=== PATIENT | male | born 1960 | race Caucasian/White ===

== ENCOUNTER 2020-06-05 13:31 | Outpatient (RCR) | payer BC, SELFPAY ==
[2020-06-05] MEDS: COVID-19 VACC, MRNA(PFIZER)/PF 30 MCG/0.3 ML SYRINGE IM (11:39)
[2020-06-26] MEDS: COVID-19 VACC, MRNA(PFIZER)/PF 30 MCG/0.3 ML SYRINGE IM (11:43)
== END 2020-06-05 23:59 ==
LOC: IMMUN 13:31
PROVIDERS: PCP Preventive Medicine Occupational Medicine; Visit Provider Family Medicine
DX: Z23 Encounter for immunization (principal)
CPT/HCPCS: 0001A; 0002A; 91300

== ENCOUNTER 2022-03-10 17:03 | Emergency (ER) | payer BC, SELFPAY ==
[2022-03-10 17:04] VITALS: BP 140/94; PULSE 78; RESP 15; TEMP 36.3; O2SAT 98; BMI 29.7
--- NOTE | 2022-03-10 17:08 | EKG12_ITS ---
Test Reason : CP Blood Pressure : / mmHG Vent. Rate : 074 BPM Atrial Rate : 074 BPM P-R Int : 252 ms QRS Dur : 098 ms QT Int : 380 ms P-R-T Axes : 051 037 057 degrees QTc Int : 421 ms Sinus rhythm with 1st degree A-V block Otherwise normal ECG Confirmed by DAO CAMARGO, CRISTIAN ([id number]), mapping editor DELPHINE MORILLO ([id number]) on 03/11/2022 10:42:06 AM Referred By: Confirmed By:CRISTIAN DC MD
--- NOTE | 2022-03-10 17:10 | NURSING ---
NO OLD EKGS
--- NOTE | 2022-03-10 17:15 | NURSING ---
NO OLD EKGS
[2022-03-10 17:18] VITALS: O2SAT 98
--- NOTE | 2022-03-10 17:19 | RAD_ITS ---
STUDY: X-RAY CHEST REASON FOR EXAM: Male, 61 years old. chest pain TECHNIQUE: Single AP portable view of the chest. COMPARISON: None. FINDINGS: The lungs are clear and expanded. There is no demonstrated pleural abnormality. Normal size heart. Normal mediastinum and britney. Normal visualized pulmonary arteries. Normal visualized aortic arch and descending thoracic aorta. Normal visualized thoracic spine. Normal visualized ribs, clavicles, and shoulders. There is no demonstrated abnormality of the visualized soft tissue structures of the upper abdomen. RAD/Chest 1 View (Portable) IMPRESSION: Normal x-ray examination of the chest. Electronically Signed: Fredy Patel MD at 17:34 EST ,
--- NOTE | 2022-03-10 17:21 | EDS_ITS ---
HPI History of Present Illness Chief Complaint: Chest Pain Informant: patient Onset/Context/Timing Onset: Today Activity at onset: sudden and onset Timing: Intermittent (x3) and Lasts (30 seconds) Quality: Positive for Pain Location: Substernal (inf-most sternum) Current Severity: Gone Maximum Severity: Moderate Worsened By: Nothing Relieved By: Nothing Associated Symptoms: Positive for Lightheadedness (mild, no near- syncope/syncope) and - (Radiating down both upper extremities, resolving along with the chest discomfort); Negative for Nausea, Vomiting, Diaphoresis, Dyspnea or Palpitations Narrative Narrative: Patient with 3 episodes of chest discomfort radiating down his arms and radiating straight into his mid back opposite the area of discomfort, the first episode occurred about 6 hours ago just before lunch, the next one was an hour after that after lunch, and the third 1 was another hour or so after that. He states he has had this happen before, it was several years ago he ended up having a stress test that was negative. No known cardiac history. He takes medication for blood pressure. Ex smoker. No pleuritic symptoms or other systemic symptoms. No recent illness. No recent travel out of the area. Prior Similar Symptoms: Yes CVD Risk Factors: Positive for Hypertension and Smoking (Former); Negative for Diabetes, Hypercholesterolemia or Family History 1' </=55 PE Risk Factors: Negative for Recent Travel/Surgery, Recent Immobilization, Prior DVT or PE, Cancer or OCP + Smoking + >/=35 PFSH PFSH Medical History (Updated 03/10/22 @ 17:[address] Brayden Dimas MD) Hypertension Allergy/AdvReac Type Severity Reaction Status Date / Time No Known Allergies Allergy Verified 03/10/22 17:04 Social History Smoking Status: Former smoker ROS ROS ED Constitutional Constitutional ED: Denies chills or fever(s) Eyes Eyes: Denies change in vision or diplopia ENT ENT ED: Denies rhinorrhea or sore throat Cardiovascular Cardiovascular: Reports chest pain; Denies palpitations Respiratory/Chest Respiratory/Chest: Denies cough or dyspnea Gastrointestinal Gastrointestinal: Denies abdominal pain, diarrhea, nausea or vomiting Genitourinary Genitourinary ED: Denies dysuria or hematuria Musculoskeletal Musculoskeletal: Reports back pain and extremity pain; Denies neck pain Integumentary Denies abscess or rash Neurologic Neurologic: Denies headache(s), paresthesias or weakness Psychiatric Psychiatric: Denies anxiety or suicidal thoughts EXAM Physical Exam Const Vital Signs: 03/10/22 17:04 03/10/22 17:18 03/10/22 18:04 Temperature 97.3 F L Temperature Source Temporal Pulse Rate 78 71 Respiratory Rate 15 17 Blood Pressure 140/94 H 121/78 H Blood Pressure Mean 109 92 Pulse Ox 98 98 97 Oxygen Delivery Method Room Air Room Air Room Air 03/10/22 19:14 Temperature Temperature Source Pulse Rate 63 Respiratory Rate 24 H Blood Pressure 116/94 H Blood Pressure Mean 101 Pulse Ox 98 Oxygen Delivery Method Room Air Positive well nourished and well developed General Appearance ED: well developed and NAD HEENT Reports moist mucous membranes normocephalic and atraumatic Eyes PERRL and EOMs intact bilaterally Neck full ROM and supple Chest Wall inspection of chest normal and palpation of chest normal Resp normal respiratory effort and clear to auscultation bilaterally Cardio regular rate, regular rhythm and no murmurs Rate: Negative for tachycardic Peripheral Pulses: pulses 2+ throughout GI non-tender and non-distended Auscultation: normoactive bowel sounds Palpation: soft Back/Spine no CVA tenderness General Back: other FROM Extremity normal to inspection General Extremety ED: Negative for edema, pulses abnormal or tenderness General Extremity: Negative for edema or pulses abnormal Neuro oriented x3, CN's II-XII intact bilaterally and no sensory deficits noted Sensorium / Orientation: awake and alert Motor Exam: strength 5/5 throughout Skin no rashes or lesions noted and no wounds MDM MDM MDM Narrative Medical decision making narrative: Cardiac work-up obtained, given that unstable angina is in the differential diagnosis, however esophageal etiologies are also in the differential here. I do not think we need to consider pulmonary embolus as cause for these intermittently brief symptoms that have recurred today. His initial work-up is unremarkable including a 1 view chest x-ray normal on my interpretation, EKG showing only first-degree AV block and no ischemic abnormalities, and negative troponin. A 2-hour repeat troponin was obtained and is also negative. At this time I think it is reasonable that the patient follow-up as an outpatient, we discussed reasons to return and he is comfortable with that plan. Lab Data Attestation: I reviewed the patient's lab results. Labs: Laboratory Results - last 24 hr 03/10/22 03/10/22 03/10/22 17:15 17:15 19:11 WBC 9.3 RBC 4.95 Hgb 14.9 Hct 46.3 MCV 93.5 MCH 30.1 MCHC 32.2 RDW Std Deviation 44.0 H RDW Coeff of Sanju 12.8 Plt Count 248 MPV 10.0 Immature Gran % (Auto) 0.400 Neut % (Auto) 55.4 Lymph % (Auto) 31.1 [place] % (Auto) 11.9 H Eos % (Auto) 0.8 Baso % (Auto) 0.4 Absolute Neuts (auto) 5.2 Absolute Lymphs (auto) 2.90 Nucleated RBC % 0 Sodium 141 Potassium 3.9 Chloride 110 H Carbon Dioxide 26.0 Anion Gap 5 BUN 19 H Creatinine 0.99 Estim Creat Clear Calc 72.33 Est GFR (MDRD) Af Amer 98 Est GFR (MDRD) Non-Af 81 BUN/Creatinine Ratio 19.2 Glucose 76 Calcium 9.4 Troponin I High Sens 4 4 Radiography Diagnostic Testing: Clinical Impression(s) from Imaging Studies Chest X-Ray 03/10/22 17:19 IMPRESSION: Normal x-ray examination of the chest. Electronically Signed: Fredy Patel MD at 17:34 EST , Rhythm Strip Rhythm Strip: Sinus Rhythm Rate: 75 Ectopy: None EKG Initial EKG: Attestation: I personally reviewed and interpreted this EKG as follows: Interpretation: Sinus Rhythm, No Acute Injury Pattern and AV Block (1st deg) Prior: No Prior Discharge Plan Triage Chief Complaint: Chest Pain ED Provider: Brayden Dimas Dx/Rx/DC Orders Clinical Impression: Intermittent chest pain Instructions: ED Chest Pain, Uncertain Cause Primary Care Provider: Oswaldo Eaton Referrals: Oswaldo Eaton DO [Primary Care Provider] - (Call for appointment to be seen within the next week or 2) Disposition Disposition: Home, Self Care
[2022-03-10 17:35] LABS: Absolute Neutrophil Count 5.2 X10^3/uL (2.0-7.7); Basophil# 0.04 X10^3/uL; Basophil% 0.4 % (0-1); Eosinophil# 0.07 X10^3/uL; Eosinophils% 0.8 % (0-5); Hematocrit 46.3 % (40-54); Hemoglobin 14.9 g/dL (13.0-16.5); Lymphocyte % 31.1 % (19-41); Mean Corp Hgb Conc 32.2 g/dL (32-36); Mean Corpuscular Hgb 30.1 pg (27.0-32.0); Mean Corpuscular Volume 93.5 fL (80-94); Monocyte# 1.11 X10^3/uL; Monocyte% 11.9 % (0-10); NRBC Flagged by Analyzer 0 % (0-5); Neutrophil # 5.15 X10^3/uL (2.7-7.7); Neutrophil % 55.4 % (47-70); Platelet Count 248 K/mm3 (150-450); RBC Distribution Width CV 12.8 % (11.6-14.6); Red Blood Count 4.95 M/mm3 (4.6-6.2); White Blood Count 9.3 K/mm3 (4.4-11.0)
[2022-03-10 17:42] LABS: Anion Gap 5 (5-15); BUN 19 mg/dL (7-18); BUN/Creat Ratio 19.2 RATIO (10-20); Calcium,Total 9.4 mg/dL (8.5-10.1); Chloride 110 mmol/L (98-107); Creatinine, Serum 0.99 mg/dL (0.70-1.30); EST Glomerular Filtration Rate 81 mL/min (>60); Est Glom Filt Rate - Afr Amer 98 mL/min (>60); Estimated Creatinine Clearance 72.33 ml/min; Glucose 76 mg/dL (74-106); Potassium 3.9 mmol/L (3.5-5.1); Sodium Level 141 mmol/L (136-145); Troponin-I HS 4 pg/mL (3.0-78.0)
[2022-03-10 18:04] VITALS: BP 121/78; PULSE 71; RESP 17; O2SAT 97
[2022-03-10 19:14] VITALS: BP 116/94; PULSE 63; RESP 24; O2SAT 98
[2022-03-10 19:47] LABS: Troponin-I HS 4 pg/mL (3.0-78.0)
[2022-03-10 20:28] VITALS: BP 139/97; PULSE 67; RESP 18; O2SAT 98
== END 2022-03-10 20:35 | disposition home or self-care (01) ==
PROVIDERS: Emergency Provider Emergency Medicine; PCP Preventive Medicine Occupational Medicine; Visit Provider Emergency Medicine
DX: R07.9 Chest pain, unspecified (principal); I10 Essential (primary) hypertension; Z87.891 Personal history of nicotine dependence
CPT/HCPCS: 71045; 80048; 84484; 85025; 93005; 99284; A4216